=== PATIENT | male | born 2000 | race Caucasian/White ===

== ENCOUNTER 2020-11-19 16:04 | Emergency (ER) | payer OTHER ==
[2020-11-20] MEDS ORDERED: IBUPROFEN600 MG PO (05:39)
== END 2020-11-19 18:34 | disposition left against medical advice (07) ==
LOC: ER1 16:04
DX: Z53.21 Procedure and treatment not carried out due to patient leaving prior to being seen by health care provider (principal)

== ENCOUNTER 2020-11-20 01:28 | Emergency (ER) | payer OTHER ==
[2020-11-20] MEDS ORDERED: IBUPROFEN600 MG PO (05:39)
== END 2020-11-20 07:20 | disposition home or self-care (01) ==
LOC: ER1 01:28
DX: S16.1XXA Strain of muscle, fascia and tendon at neck level, initial encounter (principal); S39.012A Strain of muscle, fascia and tendon of lower back, initial encounter; M25.551 Pain in right hip; S60.222A Contusion of left hand, initial encounter; V49.50XA Passenger injured in collision with unspecified motor vehicles in traffic accident, initial encounter; F17.290 Nicotine dependence, other tobacco product, uncomplicated; Z23 Encounter for immunization
CPT/HCPCS: 90471; 90715; 99283

== ENCOUNTER 2021-10-03 16:47 | Emergency (ER) | payer SELFPAY ==
[~2021-10-03 16:47] MED LIST: IBUPROFEN600 MG PO
[2021-10-03 20:14] LABS: HEMOGLOBIN 14.8 gm/dl (14.0-17.5); RED BLOOD COUNT 4.77 M/UL (4.20-5.50); WHITE BLOOD COUNT 6.9 K/UL (4.5-11.0)
[2021-10-03 20:52] LABS: BUN/CREATININE RATIO 15 (0-10)
== END 2021-10-03 21:03 | disposition home or self-care (01) ==
LOC: ER1 16:47
PROVIDERS: Student in an Organized Health Care Education/Training Program
DX: R07.89 Other chest pain (principal)
CPT/HCPCS: 71045; 80053; 82550; 82553; 84484; 85025; 93005; 99285

== ENCOUNTER 2021-10-24 02:42 | Emergency (ER) | payer OTHER ==
[2021-10-24 03:25] LABS: RED BLOOD COUNT 4.76 M/UL (4.20-5.50); WHITE BLOOD COUNT 8.4 K/UL (4.5-11.0)
[2021-10-24 03:35] LABS: BUN/CREATININE RATIO 16 (0-10)
== END 2021-10-24 05:02 | disposition home or self-care (01) ==
LOC: ER1 02:42
PROVIDERS: Emergency Medicine
DX: R07.89 Other chest pain (principal); E80.6 Other disorders of bilirubin metabolism
CPT/HCPCS: 71046; 80053; 82550; 82553; 84484; 85025; 93005; 99285

== ENCOUNTER 2021-10-29 01:28 | Emergency (ER) | payer OTHER ==
[2021-10-29 03:53] LABS: HEMOGLOBIN 14.6 gm/dl (14.0-17.5); RED BLOOD COUNT 4.7 M/UL (4.20-5.50); WHITE BLOOD COUNT 8.5 K/UL (4.5-11.0)
[2021-10-29 04:26] LABS: BUN/CREATININE RATIO 19 (0-10)
== END 2021-10-29 06:34 | disposition home or self-care (01) ==
LOC: ER1 01:28
PROVIDERS: Physician Assistant
DX: R20.2 Paresthesia of skin (principal); F12.90 Cannabis use, unspecified, uncomplicated; F17.290 Nicotine dependence, other tobacco product, uncomplicated
CPT/HCPCS: 70450; 71045; 80053; 80307; 81001; 82550; 82553; 83880; 84484; 85025; 85379; 85610; 85730; 93005; 99285